=== PATIENT | female | born 1970 | race African-American/Black ===

== ENCOUNTER 2017-04-22 04:47 | Emergency (ER) | payer BC, MEDICAID ==
[~2017-04-22] VITALS: Ht 170.2 cm; Wt 113.4 kg
--- NOTE | 2017-04-22 05:12 | NUR ---
rec'd pt in bed,[id number], ambulatory, in no distress, pt c/o generalized body aches, productive cough and chills for 3 days worse this am, pt denies cp/sob.pt breathing even unlabored, abd soft non distended with + bs, denies abd pain n/v. skin warm and dry with good skin turgor,pt denies any urinary infection s/s. pt placed in bed, in lowest position, locked,HOB up,c/b within reach will continue with POC.
--- NOTE | 2017-04-22 05:23 | NUR ---
pt advised to f/u with pmd or return to er for worsening of symptoms,verbalizes understanding, rx given to pt.
[2017-04-22 05:28] VITALS: BP 138/56
== END 2017-04-22 05:30 | disposition home or self-care (01) ==
LOC: ER 04:47
DX: M79.2 Neuralgia and neuritis, unspecified (principal); M54.30 Sciatica, unspecified side; J02.9 Acute pharyngitis, unspecified; H65.93 Unspecified nonsuppurative otitis media, bilateral; Z88.2 Allergy status to sulfonamides
CPT/HCPCS: A4663

== ENCOUNTER 2018-09-26 01:54 | Emergency (ER) | payer SELFPAY ==
[~2018-09-26] VITALS: Ht 167.6 cm; Wt 123.4 kg
[2018-09-26] MEDS ORDERED: IBU 800 MG TABLET (02:08)
--- NOTE | 2018-09-26 02:09 | NUR ---
Dr. Rodriguez at bedside for MSE.
[2018-09-26] MEDS ORDERED: NITROGLYCERIN 0.4 MG/TAB BOTTLE SL ONE ×2 (02:15→02:25)
[2018-09-26] MEDS ORDERED: IV NORMAL SALINE 500 ML BAG IV ONE (02:15)
[2018-09-26] MEDS ORDERED: ASPIRIN 325 MG TABLET PO ONE (02:15)
[2018-09-26] MEDS ORDERED: ASPIRIN 325 MG TABLET ONE (02:25)
--- NOTE | 2018-09-26 02:35 | NUR ---
Pt states relief from chestpain after 1 dose of nitro, but c/o headache.
--- NOTE | 2018-09-26 02:36 | NUR ---
Xray at bedside.
[2018-09-26 02:39] LABS: BASOPHILS # (AUTO) 0.1 K/uL (0.0-8.0); BASOPHILS % (AUTO) 0.8 % (0.0-2.0); EOSINOPHILS # (AUTO) 0.1 K/uL (0.0-0.7); EOSINOPHILS % (AUTO) 1.4 % (0.0-7.0); HEMATOCRIT 36.8 % (31.2-41.9); HEMOGLOBIN 11.9 g/dL (10.9-14.3); LYMPHOCYTES # (AUTO) 2.1 K/uL (20.0-40.0); LYMPHOCYTES % (AUTO) 19.7 % (20.5-51.5); MEAN CORPUSCULAR HEMOGLOBIN 26.8 uug (24.7-32.8); MEAN CORPUSCULAR HGB CONC 32 g/dL (32.3-35.6); MEAN CORPUSCULAR VOLUME 82.8 fL (75.5-95.3); MONOCYTES # (AUTO) 0.9 K/uL (2.0-10.0); NEUTROPHILS # (AUTO) 7.5 K/uL (1.8-8.9); NEUTROPHILS % (AUTO) 70.1 % (38.5-71.5); PLATELET COUNT (AUTO) 312 K/uL (179-408); RED BLOOD CELL COUNT(AUTO) 4.44 MIL/uL (3.63-4.92); WHITE BLOOD COUNT (AUTO) 10.7 K/uL (3.8-11.8)
[2018-09-26 02:43] LABS: CREATININE 1.1 mg/dL (0.6-1.3); POTASSIUM 4.5 mmol/L (3.5-5.1)
[2018-09-26 02:56] LABS: BILIRUBIN,DIRECT 0.1 mg/dL (0.0-0.2); BILIRUBIN,TOTAL 0.3 mg/dL (0.2-1.0); TOTAL PROTEIN, SERUM 8.3 g/dL (6.4-8.2)
--- NOTE | 2018-09-26 03:10 | NUR ---
Patient discharged to home in stable conditon. Written and verbal after care instructions given. Patient verbalizes understanding of instructions. Pt ambulated out of ER with steady gait, no acute signs of distress, VSS, all belongings taken, IV site discontinued.
[2018-09-26 03:11] VITALS: BP 160/33
== END 2018-09-26 03:12 | disposition home or self-care (01) ==
LOC: ER 01:56
DX: R07.89 Other chest pain (principal); I10 Essential (primary) hypertension; F12.10 Cannabis abuse, uncomplicated; Z88.2 Allergy status to sulfonamides; Z79.1 Long term (current) use of non-steroidal anti-inflammatories (NSAID)
CPT/HCPCS: 36415; 70030-TC; 71045; 85025; 85730; 93005; A4663; J7040

== ENCOUNTER 2019-01-08 15:24 | Emergency (ER) | payer SELFPAY ==
[~2019-01-08] VITALS: Ht 170.2 cm; Wt 111.1 kg
[~2019-01-08 15:24] MED LIST: DOCU-141 PO; HYDR12.5 PO; IBU 800 MG TABLET; LOSA25TA27 PO
[2019-01-08] MEDS ORDERED: IBUP-1955 PO (15:31)
--- NOTE | 2019-01-08 15:52 | NUR ---
PATIENT IS AWAKE, ALERT, ORIENTED X4 IN NO DISTRESS. PATIENT C/O BACK PAIN. DENIES SOB OR CHEST PAIN.
[2019-01-08] MEDS ORDERED: ONDANSETRON 4 MG/2 ML VIAL IM ONE (16:00)
[2019-01-08] MEDS ORDERED: HYDROMORPHONE 1 MG/1 ML DISP.SYRIN IM ONE (16:00)
[2019-01-08 16:01] LABS: *BILIRUBIN,URIN NEGATIVE (NEGATIVE); *CLARITY,URINE CLEAR (CLEAR); *COLOR,URINE LIGHT YELLOW (YELLOW); *KETONES,URINE NEGATIVE (NEGATIVE); *URINE HCG, QUAL NEGATIVE (NEGATIVE); *UROBILINOGEN,URINE 0.2 E.U./dl (NORMAL); LEUKOCYTE ESTERASE ,URINE TRACE (NEGATIVE); NITRITE, URINE NEGATIVE (NEGATIVE); UGLUCOSE NEGATIVE (NEGATIVE)
[2019-01-08 16:03] LABS: *BLOOD, URINE TRACE (NEGATIVE)
[2019-01-08 16:06] LABS: BACTERIA,URINE FEW /HPF (NONE SEEN); RBC,URINE 0-3 /HPF (0-3); SQUAMOUS EPITHELIAL CELL,UR FEW /HPF (NONE SEEN); WBC,URINE 0-3 /HPF (0-3)
[2019-01-08] MEDS ORDERED: HYDROMORPHONE 2 MG/1 ML DISP.SYRIN ONE (16:10)
[2019-01-08] MEDS ORDERED: ONDANSETRON 4 MG/2 ML VIAL ONE (16:10)
[2019-01-08] MEDS ORDERED: IV NORMAL SALINE 1000 ML BAG IV ONE (17:00)
[2019-01-08] MEDS ORDERED: HYDROMORPHONE 1 MG/1 ML DISP.SYRIN IV ONE (17:00)
[2019-01-08] MEDS ORDERED: ONDANSETRON 4 MG/2 ML VIAL IV ONE (17:00)
--- NOTE | 2019-01-08 17:01 | NUR ---
PATIENT TOLD DR ROTH THAT HER PAIN HAS NOT DIMINISHED. SHE IS AT CT SCAN RIGHT NOW. WILL GIVE HER MEDS ORDERED WHEN SHE RETURNS TO ER.
[2019-01-08] MEDS ORDERED: HYDROMORPHONE 1 MG/1 ML DISP.SYRIN ONE (17:15)
--- NOTE | 2019-01-08 17:39 | NUR ---
PATIENT NOW STATES PAIN HAS DIMINISHED.
[2019-01-08 17:40] LABS: BASOPHILS # (AUTO) 0.1 K/uL (0.0-8.0); BASOPHILS % (AUTO) 0.7 % (0.0-2.0); EOSINOPHILS # (AUTO) 0.3 K/uL (0.0-0.7); EOSINOPHILS % (AUTO) 2.4 % (0.0-7.0); HEMATOCRIT 36.8 % (31.2-41.9); HEMOGLOBIN 11.8 g/dL (10.9-14.3); LYMPHOCYTES # (AUTO) 2.5 K/uL (20.0-40.0); LYMPHOCYTES % (AUTO) 21.8 % (20.5-51.5); MEAN CORPUSCULAR HEMOGLOBIN 25.7 uug (24.7-32.8); MEAN CORPUSCULAR HGB CONC 32 g/dL (32.3-35.6); MONOCYTES # (AUTO) 0.7 K/uL (2.0-10.0); MONOCYTES % (AUTO) 6.2 % (0.0-11.0); NEUTROPHILS # (AUTO) 7.9 K/uL (1.8-8.9); NEUTROPHILS % (AUTO) 68.9 % (38.5-71.5); PLATELET COUNT (AUTO) 358 K/uL (179-408); RED BLOOD CELL COUNT(AUTO) 4.59 MIL/uL (3.63-4.92); WHITE BLOOD COUNT (AUTO) 11.5 K/uL (3.8-11.8)
[2019-01-08 17:44] LABS: CREATININE 0.9 mg/dL (0.6-1.3); POTASSIUM 3.9 mmol/L (3.5-5.1)
[2019-01-08 17:54] LABS: BILIRUBIN,DIRECT 0.1 mg/dL (0.0-0.2); BILIRUBIN,TOTAL 0.3 mg/dL (0.2-1.0); TOTAL PROTEIN, SERUM 8.1 g/dL (6.4-8.2)
--- NOTE | 2019-01-08 18:12 | NUR ---
COPIES OF ALL LABS AND IMAGING PRINTED AND GIVEN TO PATIENT.
--- NOTE | 2019-01-08 18:15 | NUR ---
DC, RX 9INCLUDING PRECAUTIONS) AND FOLLOW UP INSTRUCTIONS GIVEN AND EXPLAINED TO PATIENT WHO STATES SHE UNDERSTANDS ALL INSTRUCTIONS. PATIENT STATES SHE IS AWARE THAT DILAUDID IMPAIRS HER DRIVING, STATES SHE IS TAKING A "LYFT" AND DOES NOT DRINK ALCOHOL.
--- NOTE | 2019-01-08 18:15 | NUR ---
IV removed. Catheter intact and site benign. Pressure and 4x4 gauze applied to site. No bleeding noted.
== END 2019-01-08 18:16 | disposition home or self-care (01) ==
LOC: ER 15:25
DX: M54.9 Dorsalgia, unspecified (principal); R10.11 Right upper quadrant pain; I10 Essential (primary) hypertension; Z88.2 Allergy status to sulfonamides; Z79.1 Long term (current) use of non-steroidal anti-inflammatories (NSAID); Z79.899 Other long term (current) drug therapy
CPT/HCPCS: 36415; 71045; 72072; 74176; 76705; 80048; 80076; 81000; 81001; 83690; 84484; 84703; 85025; 85730; 93005; 96372 ×2; 99284; J1170; J2405; 70030-TC; A4663; J7030